=== PATIENT | male | born 1955 | race Caucasian/White ===

== ENCOUNTER 2017-04-17 20:41 | Emergency (ER) | payer OTHER, BC ==
[2017-04-17 20:52] VITALS: BP 154/93
--- NOTE | 2017-04-17 21:57 | EDM.PDOC ---
ED HPI GENERAL MEDICAL PROBLEM - General Chief Complaint: Lower Extremity Injury/Pain Stated Complaint: LEFT ANKLE INJURY Time Seen by Provider: 04/17/17 21:27 Source of Information: Reports: Patient History Limitations: Reports: No Limitations - History of Present Illness INITIAL COMMENTS - FREE TEXT/NARRATIVE: Patient is a 61-year-old male who presents to the ED complaining of posterior ankle discomfort. States he was running wearing full bunker gear and felt a pop to the posterior aspect of his lower leg. He is able to flex and extend his foot with increasing pain noted to the Achilles. He questions if he had torn his Achilles tendon. No numbness or tingling, or sensory deficits distally. He has no prior history of Achilles rupture. Denies any pain to the remainder of his lower leg and knee. Left Ankle Pain Score (Numeric/FACES): 2 - Related Data Allergies Allergy/AdvReac Type Severity Reaction Status Date / Time acetaminophen [From Vicodin] AdvReac Giddiness Verified 04/17/17 20:59 hydrocodone [From Vicodin] AdvReac Giddiness Verified 04/17/17 20:59 Home Meds: Home Meds Allopurinol [Zyloprim] 300 mg PO DAILY 08/19/16 [History] Lisinopril 20 mg PO DAILY 08/19/16 [History] atorvaSTATin [Lipitor] 20 mg PO BEDTIME 08/19/16 [History] Aspirin 1 tab PO DAILY 09/21/16 [History] Ca Carbonate/Vitamin D3/Vit K [Calcium + D Soft Chewable Tab] 1 tab PO DAILY 03/02 [History] Cinnamon Bark [Cinnamon] 1 cap PO DAILY 09/21/16 [History] Clobetasol Propionate [Temovate] 1 applic TOP ASDIRECTED PRN 09/21/16 [History] Fish Oil/Borage/Flax/Om3,6,9#1 [[place] 3-6-9 Complex Softgel] 1 cap PO DAILY 03/02 [History] Fluticasone Propionate [Flonase] 1 spray NASBOTH DAILY PRN 09/21/16 [History] Ibuprofen [Advil] 2 - 3 tab PO Q6HR PRN 09/21/16 [History] Triamcinolone Acetonide [Kenalog-40] 1 applic TOP ASDIRECTED PRN 09/21/16 [ History] Orphenadrine [Norflex] 100 mg PO BID PRN #16 tab.er 04/17/17 [Rx] traMADol [Ultram] 50 mg PO Q6H PRN #15 tablet 04/17/17 [Rx] traMADol [Ultram] 50 mg PO Q6H PRN #2 tablet 04/17/17 [Rx] Past Medical History HEENT History: Reports: None Cardiovascular History: Reports: CAD, High Cholesterol, Hypertension, [place] Respiratory History: Reports: Sleep Apnea Gastrointestinal History: Reports: GERD Other Gastrointestinal History: biliary dyskinesia, increased LFTs, diverticular disease Genitourinary History: Reports: None Musculoskeletal History: Reports: Back Pain, Chronic, Other (See Below) Other Musculoskeletal History: left arm pain, degenerative disk disease, L knee osteoarthritis Neurological History: Reports: None Psychiatric History: Reports: None Endocrine/Metabolic History: Reports: Diabetes, Type II - Past Surgical History GI Surgical History: Reports: Cholecystectomy, Colonoscopy Neurological Surgical History: Reports: Lumbar Spine Musculoskeletal Surgical History: Reports: Arthroscopic Procedure, Shoulder Surgery Social & Family History - Family History Family Medical History: Noncontributory - Tobacco Use Smoking Status *Q: Never Smoker Second Hand Smoke Exposure: No - Caffeine Use Caffeine Use: Reports: Coffee, Soda - Recreational Drug Use Recreational Drug Use: No Review of Systems - Review of Systems Review Of Systems: See Below Musculoskeletal: Reports: Leg Pain Neurological: Reports: Difficulty Walking. Denies: Numbness, Tingling ED EXAM, GENERAL - Physical Exam Exam: See Below Exam Limited By: No Limitations General Appearance: Alert, WD/WN, No Apparent Distress Ears: Hearing Grossly Normal Nose: Normal Inspection Throat/Mouth: Normal Voice, No Airway Compromise Neck: Normal Inspection Respiratory/Chest: No Respiratory Distress, No Accessory Muscle Use Cardiovascular: Normal Peripheral Pulses, Regular Rate, Rhythm Peripheral Pulses: 2+: Posterior Tibial (L), Dorsalis Pedis (L) Extremities: Normal Inspection, Normal Range of Motion, No Pedal Edema, Normal Capillary Refill, Other (Ramos test was positive. On palpation of the Achilles area soft with minimal pain on palpation. No swelling, ecchymosis, or bony abnormalities noted. Patient may have partially torn his Achilles.) Neurological: Alert, Oriented, Normal Cognition, No Motor/Sensory Deficits Psychiatric: Normal Affect, Normal Mood Skin Exam: Warm, Dry, Intact, Normal Color Course - Vital Signs Last Recorded V/S: Last Vital Signs Temp 97.8 F 04/17/17 20:49 Pulse 79 04/17/17 20:49 Resp 16 04/17/17 20:49 BP 154/93 H 04/17/17 20:49 Pulse Ox 96 04/17/17 20:49 - Orders/Labs/Meds Meds: Medications Discontinued Medications Generic Name Dose Route Start Last Admin Trade Name Jj PRN Reason Stop Dose Admin Ibuprofen 600 mg 04/17/17 21:58 04/17/17 22:05 Motrin PO 04/17/17 21:59 600 mg ONETIME ONE Administration Orphenadrine Citrate 100 mg 04/18/17 23:26 Norflex PO 04/18/17 23:27 BEDTIME ONE Orphenadrine Citrate 100 mg 04/17/17 23:26 04/17/17 23:38 Norflex PO 04/17/17 23:27 100 mg BEDTIME ONE Administration Tramadol HCl 50 mg 04/17/17 21:59 04/17/17 22:07 Ultram PO 04/17/17 22:00 50 mg ONETIME ONE Administration Tramadol HCl Confirm 04/17/17 23:44 Ultram Administered 04/17/17 23:45 Dose 100 mg .ROUTE .STK-MED ONE - Re-Assessments/Exams Free Text/Narrative Re-Assessment/Exam: Will obtain x-ray of the left ankle to evaluate for avulsion of the Achilles off the calcaneus. X-ray of the left ankle did not reveal any acute bony abnormalities or findings of complete avulsion of the Achilles tendon of the calcaneus. Walking boot and crutches ordered upon discharge. Discharge instructions as documented. Ordered 600 mg of ibuprofen and tramadol 50 mg by mouth for pain. [address] Lisa. Recommends posterior splint with foot plantar flexed as much as possible. He'll see the patient in the office on Saturday. Request ordering MRI of the lower leg. Short leg posterior splint applied with no complications. Foot plantar flexed as much as possible. Pain is under control. Will discharge patient home with instructions as documented. They already have crutches so none will be provided on discharge. Will send patient home on tramadol for pain. Prescription for tramadol and Norflex provided. In addition Norflex 100 mg by mouth ordered for the ED patient's had some muscle cramps to the affected leg. Departure - Departure Time of Disposition: 23:23 Disposition: Home, Self-Care 01 Condition: Good Clinical Impression: Partial tear of Achilles tendon Qualifiers: Encounter type: initial encounter Laterality: left Qualified Code(s): S86.012A - Strain of left Achilles tendon, initial encounter - Discharge Information Prescriptions: Orphenadrine [Norflex] 100 mg PO BID PRN #16 tab.er PRN Reason: Muscle Spasm traMADol [Ultram] 50 mg PO Q6H PRN #2 tablet PRN Reason: Pain (Severe 7-10) traMADol [Ultram] 50 mg PO Q6H PRN #15 tablet PRN Reason: Pain (Severe 7-10) Instructions: Pain Medicine Instructions, [id number], Cast or Splint Care, [id number], Crutch Use, [id number] Referrals: Imtiaz Bowden MD [Primary Care Provider] - Akin Lisa MD [Physician] - Maximino Frias MD [Physician] - Forms: ED Department Discharge Additional Instructions: You are to be nonweightbearing utilizing crutches only to ambulate. Elevate when able to reduce swelling and pain. Apply ice to the affected area times daily, 30 minutes in duration. Take ibuprofen 600 mg every 6 hours with food and plenty of water For pain. For muscle cramps taking Norflex 100 mg twice a day. For moderate to severe pain take the tramadol 1 tab every 4-6 hours. No [address] while taking the tramadol and Norflex due to increase sedative side effects. No driving this evening. Follow-up with Dr. Graham this coming Saturday for reevaluation or contact Dr. Frias for an appointment. MRI of the lower leg will be obtained to further delineate extent of injury. Return to the ED as needed for any new or worsening symptoms.
[2017-04-17] MEDS ORDERED: Ibuprofen 600 MG Tab PO ONE (21:58)
[2017-04-17] MEDS ORDERED: traMADol 50 MG Tab PO ONE (21:59)
[2017-04-17] MEDS ORDERED: Orphenadrine 100 MG Tab.ER PO ONE (23:26)
[2017-04-17] MEDS ORDERED: traMADol 50 MG Tab ONE (23:44)
--- NOTE | 2017-04-18 06:59 | CR ---
Left ankle: Two views of the left ankle were obtained. Comparison: No prior ankle study. Plantar spur is seen. Bony densities are noted off the medial and lateral malleolus which appear old. No acute fracture or other bony abnormality is seen. Impression: 1. Old bony trauma as described above. 2. Plantar spur. 3. No additional abnormality is identified on two-view left ankle study. Diagnostic code #2
[2017-04-18] MEDS ORDERED: Orphenadrine 100 MG Tab.ER PO ONE (23:26)
== END 2017-04-17 23:58 | disposition home or self-care (01) ==
LOC: JD.ED 20:41
DX: S86.012A Strain of left Achilles tendon, initial encounter (principal); I10 Essential (primary) hypertension; I25.2 Old myocardial infarction; I25.10 Atherosclerotic heart disease of native coronary artery without angina pectoris; E78.00 Pure hypercholesterolemia, unspecified; G47.30 Sleep apnea, unspecified; K21.9 Gastro-esophageal reflux disease without esophagitis; E11.9 Type 2 diabetes mellitus without complications; Z90.49 Acquired absence of other specified parts of digestive tract; Z98.890 Other specified postprocedural states; Z79.82 Long term (current) use of aspirin; Z79.899 Other long term (current) drug therapy; Z88.6 Allergy status to analgesic agent; X58.XXXA Exposure to other specified factors, initial encounter
CPT/HCPCS: 29515; 73600; 99283; A9270

== ENCOUNTER 2017-10-16 07:02 | Day surgery (SDC) | payer BC, OTHER ==
[~2017-10-16 07:02] MED LIST: Bisacodyl 5 MG Tab PO PRN; Bupivacaine 0.25% 30 ML SDV ONE; Iodine/Sodium Iodide 2% Tincture 30 ML Bottle ONE; Lactated Ringers 1,000 ML IV SCH; Lidocaine 1%/Sod Bicarbonate in NS 8.4% 1 ML Syringe IDERM PRN; Lidocaine 1%/Sod Bicarbonate in NS 8.4% 1 ML Syringe IV PRN; Magnesium Hydroxide 400 MG/5 ML Susp 30 ML Cup PO PRN; Morphine 2 MG/ML Syringe IVPUSH PRN; Morphine 8 MG, EPINEPHrine 0.3 MG, Cefuroxime 750 MG, Ketorolac 30 MG, Sodium Chloride ... ONE; Naloxone 0.4 MG/ML SDV IVPUSH PRN; Ondansetron 4 MG/2 ML SDV IVPUSH PRN; Sennosides 8.6 MG Tab PO PRN; Sodium Chloride 0.9% 10 ML Syringe FLUSH PRN; Vancomycin 1 GM SDV ONE; ceFAZolin 1 GM Vial ONE; diphenhydrAMINE 50 MG/ML SDV IVPUSH PRN
[2017-10-16] MEDS ORDERED: Morphine PF 1 MG/ML Amp ONE (07:36)
[2017-10-16] MEDS ORDERED: Propofol 200 MG/20 ML SDV ONE ×4 (07:41→10:12)
[2017-10-16] MEDS ORDERED: fentaNYL 100 MCG/2 ML SDV ONE (07:41)
[2017-10-16] MEDS ORDERED: Ondansetron 4 MG/2 ML SDV ONE (07:42)
[2017-10-16] MEDS ORDERED: ceFAZolin 1 GM Vial ONE (07:42)
[2017-10-16] MEDS ORDERED: Lidocaine 1% 4 ML ONE (07:42)
[2017-10-16] MEDS ORDERED: Midazolam 1 MG/ML 2 ML SDV ONE (07:42)
[2017-10-16] MEDS ORDERED: Scopolamine 1 MG Transdermal Patch TOP ONE (07:56)
--- NOTE | 2017-10-16 07:58 | PCM.PREANE ---
Preanesthetic Assessment - Anesthesia/Transfusion/Family Hx Anesthesia History: Prior Anesthesia Without Reaction Family History of Anesthesia Reaction: No Transfusion History: No Prior Transfusion(s) - Review of Systems General: No Symptoms Pulmonary: No Symptoms Cardiovascular: No Symptoms Gastrointestinal: No Symptoms Neurological: No Symptoms Other: Reports: Easy Bleeding (nose bleeds), Diabetes (BS [id number]), Liver Problems (fatty liver) - Physical Assessment NPO Status Date: 10/16/17 NPO Status Time: 00:00 Pulse: 62 O2 Sat by Pulse Oximetry: 94 Respiratory Rate: 16 Blood Pressure: 152/89 Temperature: 36.7 C Vital Signs: Last Vital Signs Temp 36.7 C 10/16/17 07:20 Pulse 62 10/16/17 07:20 Resp 16 10/16/17 07:20 BP 152/89 H 10/16/17 07:20 Pulse Ox 94 L 10/16/17 07:20 Height: 1.83 m Weight: 94.801 kg ASA Class: 2 Mental Status: Alert & Oriented x3 Airway Class: Mallampati = 1 Dentition: Reports: Normal Dentition, Point Blank(s) Thyro-Mental Finger Breadths: 3 Mouth Opening Finger Breadths: 3 ROM/Head Extension: Full Lungs: Clear to Auscultation, Normal Respiratory Effort Cardiovascular: Regular Rate, Regular Rhythm, No Murmurs - Lab Values: Laboratory Last Values POC Glucose 143 mg/dL (80-115) H 10/16/17 07:41 MRSA (PCR) Negative 09/24/17 15:14 - Imaging/EKG Impressions: on chart SB - Allergies Allergies/Adverse Reactions: Allergies Allergy/AdvReac Type Severity Reaction Status Date / Time acetaminophen [From Vicodin] AdvReac Confusion Verified 10/16/17 07:56 hydrocodone [From Vicodin] AdvReac Confusion Verified 10/16/17 07:56 - Anesthesia Plan Pre-Op Medication Ordered: None - Acknowledgements Anesthesia Type Planned: Spinal Pt an Appropriate Candidate for the Planned Anesthesia: Yes Alternatives and Risks of Anesthesia Discussed w Pt/Guardian: Yes Pt/Guardian Understands and Agrees with Anesthesia Plan: Yes PreAnesthesia Questionnaire HEENT History: Reports: Impaired Vision, Other (See Below) Other HEENT History: wears glasses Cardiovascular History: Reports: CAD, High Cholesterol, Hypertension, [place] Respiratory History: Reports: Sleep Apnea Gastrointestinal History: Reports: GERD Other Gastrointestinal History: biliary dyskinesia, increased LFTs, diverticular disease Genitourinary History: Reports: None [employer] History: Reports: None Musculoskeletal History: Reports: Back Pain, Chronic, Gout, Other (See Below) Other Musculoskeletal History: left arm pain, degenerative disk disease, L knee osteoarthritis Neurological History: Reports: None Psychiatric History: Reports: None Endocrine/Metabolic History: Reports: Diabetes, Type II Hematologic History: Reports: None Immunologic History: Reports: None Oncologic (Cancer) History: Reports: None Dermatologic History: Reports: Psoriasis - Past Surgical History Head Surgeries/Procedures: Reports: None Cardiovascular Surgical History: Reports: None Respiratory Surgical History: Reports: None GI Surgical History: Reports: Cholecystectomy, Colonoscopy Female Surgical History: Reports: None Male Surgical History: Reports: None Endocrine Surgical History: Reports: None Neurological Surgical History: Reports: Laminectomy, Lumbar Spine Musculoskeletal Surgical History: Reports: Arthroscopic Procedure, Shoulder Surgery Other Musculoskeletal Surgeries/Procedures:: R rotator cuff repair, L knee arthroscopy Oncologic Surgical History: Reports: None Dermatological Surgical History: Reports: None - SUBSTANCE USE Smoking Status *Q: Never Smoker Tobacco Use Within Last Twelve Months: No Second Hand Smoke Exposure: No Recreational Drug Use History: No - HOME MEDS Home Medications: Home Meds Allopurinol [Zyloprim] 300 mg PO DAILY 08/19/16 [History] Lisinopril 20 mg PO DAILY 08/19/16 [History] atorvaSTATin [Lipitor] 20 mg PO BEDTIME 08/19/16 [History] Ca Carbonate/Vitamin D3/Vit K [Calcium + D Soft Chewable Tab] 1 tab PO DAILY 03/02 [History] Fish Oil/Borage/Flax/Om3,6,9#1 [[place] 3-6-9 Complex Softgel] 1 cap PO DAILY 03/02 [History] Fluticasone Propionate [Flonase] 1 spray NASBOTH DAILY PRN 09/21/16 [History] Ibuprofen [Advil] 2 - 3 tab PO Q6HR PRN 09/21/16 [History] Cholecalciferol (Vitamin D3) [Vitamin D3] 5,000 unit PO DAILY 10/09/17 [History] Triamcinolone Acetonide [Triamcinolone Acetonide 0.1% Crm] 1 applic TOP DAILY [History] - CURRENT (IN HOUSE) MEDS Current Meds: Current Medications Aspirin (Ecotrin) 325 mg PO BID JOSE Bisacodyl (Dulcolax) 5 mg PO DAILY PRN PRN Reason: Constipation Cyclobenzaprine HCl (Flexeril) 10 mg PO TID PRN PRN Reason: Spasms Diphenhydramine HCl (Benadryl) 25 mg IVPUSH Q4H PRN PRN Reason: Nausea Docusate Sodium (Colace) 100 mg PO BID JOSE Famotidine (Pepcid) 20 mg PO Q12H [facility] Lactated Ringer's (Ringers, Lactated) 1,000 mls @ 125 mls/hr IV ASDIRECTED [facility] Stop: 10/16/17 23:00 Cefazolin Sodium/Dextrose 2 gm (/ Premix) 50 mls @ 100 mls/hr IV Q8H [facility] Stop: 10/17/17 08:29 Ketorolac Tromethamine (Toradol) 15 mg IVPUSH Q6H PRN PRN Reason: Pain Lidocaine/Sodium Bicarbonate (Buffered Lidocaine 1% In Ns 8.4%) 0.25 ml IDERM ONETIME PRN PRN Reason: Prior to IV Start Stop: 10/16/17 18:00 Magnesium Hydroxide (Milk Of Magnesia) 30 ml PO BID PRN PRN Reason: Constipation Morphine Sulfate (Morphine) 2 mg IVPUSH Q2H PRN PRN Reason: Breakthrough Pain Naloxone HCl (Narcan) 0.1 mg IVPUSH Q5M PRN PRN Reason: Oversedation Ondansetron HCl (Zofran) 4 mg IVPUSH Q6H PRN PRN Reason: Nausea/Vomiting Oxycodone/Acetaminophen (Percocet 325-5 Mg) 1 - 2 tab PO Q4H PRN PRN Reason: Pain Senna (Senna) 8.6 mg PO BID PRN PRN Reason: Constipation Sodium Chloride (Saline Flush) 10 ml FLUSH ASDIRECTED PRN PRN Reason: Keep Vein Open Stop: 10/16/17 18:00 Discontinued Medications Bupivacaine HCl (Marcaine 0.25%) Confirm Administered Dose 30 ml .ROUTE .STK- MED ONE Stop: 10/16/17 06:59 Cefazolin Sodium (Ancef) Confirm Administered Dose 2 gm .ROUTE .STK-MED ONE Stop: 10/16/17 06:59 Cefazolin Sodium (Ancef) Confirm Administered Dose 2 gm .ROUTE .STK-MED ONE Stop: 10/16/17 07:43 Morphine Sulfate 8 mg/Epinephrine HCl 0.3 mg/Cefuroxime Sodium 750 mg/Ketorolac Tromethamine 30 mg/Sodium Chloride 27.9 ml 0 mg .XX ONETIME ONE Stop: 10/16/17 06:38 Fentanyl (Sublimaze) Confirm Administered Dose 100 mcg .ROUTE .STK-MED ONE Stop: 10/16/17 07:42 Lactated Ringer's (Ringers, Lactated) 1,000 mls @ 125 mls/hr IV ASDIRECTED JOSE Stop: 10/10/17 23:00 Lidocaine HCl (Xylocaine-Mpf 1%) Confirm Administered Dose 4 mls @ as directed .ROUTE .STK-MED ONE Stop: 10/16/17 07:43 Iodine (Iodine 2% Mild Tincture) Confirm Administered Dose 30 ml .ROUTE .STK- MED ONE Stop: 10/16/17 06:59 Lidocaine/Sodium Bicarbonate (Buffered Lidocaine 1% In Ns 8.4%) 0.25 ml IV ONETIME PRN PRN Reason: Prior to IV Start Stop: 10/10/17 18:00 Midazolam HCl (Versed 1 Mg/Ml) Confirm Administered Dose 2 mg .ROUTE .STK-MED ONE Stop: 10/16/17 07:43 Morphine Sulfate (Duramorph Pf) Confirm Administered Dose 1 mg .ROUTE .STK-MED ONE Stop: 10/16/17 07:37 Ondansetron HCl (Zofran) Confirm Administered Dose 4 mg .ROUTE .STK-MED ONE Stop: 10/16/17 07:43 Propofol (Diprivan 20 Ml) Confirm Administered Dose 200 mg .ROUTE .STK-MED ONE Stop: 10/16/17 07:42 Sodium Chloride (Saline Flush) 10 ml FLUSH ASDIRECTED PRN PRN Reason: Keep Vein Open Stop: 10/10/17 18:00 Tranexamic Acid (Cyklokapron) Confirm Administered Dose 1,000 mg .ROUTE .STK- MED ONE Stop: 10/16/17 06:59 Vancomycin HCl (Vancomycin) Confirm Administered Dose 1 gm .ROUTE .STK-MED ONE Stop: 10/16/17 06:59
[2017-10-16] MEDS ORDERED: Lactated Ringers 1,000 ML ONE ×2 (09:03→10:21)
[2017-10-16] MEDS ORDERED: Ketorolac 30 MG/ML SDV ONE (10:27)
[2017-10-16] MEDS ORDERED: fentaNYL 100 MCG/2 ML SDV IVPUSH PRN (10:50)
--- NOTE | 2017-10-16 10:51 | PCM.POSTAN ---
POST ANESTHESIA ASSESSMENT - MENTAL STATUS Mental Status: Alert, Oriented - VITAL SIGNS Pulse Rate: 64 SaO2: 94 Resp Rate: 9 Blood Pressure: 103/63 Temperature: 36.1 C - RESPIRATORY Respiratory Status: Respiratory Rate WNL, Airway Patent, O2 Saturation Stable, Supplemental Oxygen - CARDIOVASCULAR CV Status: Pulse Rate WNL, Blood Pressure Stable - GASTROINTESTINAL GI Status: No Symptoms - PAIN Pain Score: 0 - POST OP HYDRATION Hydration Status: Adequate & Stable - OBSERVATIONS Free Text/Narrative:: no anesthesia complications noted
[2017-10-16] MEDS ORDERED: EPINEPHrine 1 MG/ML SDV ONE (11:08)
[2017-10-16] MEDS ORDERED: Ropivacaine 0.5% 5 MG/ML 30 ML SDV ONE (11:08)
--- NOTE | 2017-10-16 11:49 | CR ---
Left knee: AP and lateral views of the left knee were obtained. Comparison: No previous study. Knee prosthesis is seen. Components are aligned. Soft tissue air is noted from the surgical procedure. Underlying bony structures are intact. Impression: 1. Satisfactory radiographic appearance of recently placed left knee prosthesis. Diagnostic code #2
--- NOTE | 2017-10-16 12:19 | PCM.SN ---
- Free Text/Narrative Note: Left selective femoral nerve block at the adductor canal for post-procedure pain control under US guidance requested by Dr. Frias. Time Out: 1124 Start: 1127 End: 1137 Chart reviewed. Consent signed. Questions answered. Appropriate monitors applied. Time out performed. Left mid-shaft femur identified with ultrasound, scanning medially of femur, the femoral artery in the adductor canal visualized , and the femoral nerve located laterally to the artery. The skin was prepped lateral to the ultrasound probe with chlorahexadine. The 21ga 4 insulated block needle was inserted under direct ultrasound guidance into the adductor canal. 25mL of 0.5% ropivacaine with 1:200,000 epinephrine was injected cirmcumferentially around the nerve with intermittent negative aspiration noted. Patient tolerated the procedure well. See pictures on progress note and vital signs on nurses notes. Block completed in PACU. Melvi Cabral CRNA
--- NOTE | 2017-10-16 15:02 | PCM.CONS ---
H&P History of Present Illness - General Date of Service: 10/16/17 Admit Problem/Dx: Admission Diagnosis/Problem Admission Diagnosis/Problem Osteoarthritis of knee Source of Information: Patient, Old Records, Police, Provider, RN, RN Notes Reviewed, Other (surgical notes ) History Limitations: Reports: No Limitations - History of Present Illness Initial Comments - Free Text/Narative: Raf North is a 61 yo male patient of Dr. Frias who is post-operative day 0 of left TKA. Hospital medicine was consulted for post-operative medical care. At this time he is resting comfortably in bed. Pain is controlled. He denies any chest pain, shortness of breath, palpitations, nausea, or vomiting. He carries a history of: impaired vision, CAD, HLC, HTN, prior ME, PERRY, GERD, biliary dyskinesia, increased LFTs, diverticular disease, chronic back pain, gout, degenerative disk disease, OA, Type II DM although he is not on any medications , psoriasis. He was never a smoker. He is a full code. His primary care provider is Dr. Bowden at [facility] here in [place]. Left Knee Pain Score (Numeric/FACES): 1 - Related Data Allergies/Adverse Reactions: Allergies Allergy/AdvReac Type Severity Reaction Status Date / Time acetaminophen [From Vicodin] AdvReac Confusion Verified 10/16/17 07:56 hydrocodone [From Vicodin] AdvReac Confusion Verified 10/16/17 07:56 Home Medications: Home Meds Allopurinol [Zyloprim] 300 mg PO DAILY 08/19/16 [History] Lisinopril 20 mg PO DAILY 08/19/16 [History] atorvaSTATin [Lipitor] 20 mg PO BEDTIME 08/19/16 [History] Ca Carbonate/Vitamin D3/Vit K [Calcium + D Soft Chewable Tab] 1 tab PO DAILY 03/02 [History] Fish Oil/Borage/Flax/Om3,6,9#1 [[place] 3-6-9 Complex Softgel] 1 cap PO DAILY 03/02 [History] Fluticasone Propionate [Flonase] 1 spray NASBOTH DAILY PRN 09/21/16 [History] Ibuprofen [Advil] 2 - 3 tab PO Q6HR PRN 09/21/16 [History] Cholecalciferol (Vitamin D3) [Vitamin D3] 5,000 unit PO DAILY 10/09/17 [History] Triamcinolone Acetonide [Triamcinolone Acetonide 0.1% Crm] 1 applic TOP DAILY [History] Past Medical History HEENT History: Reports: Impaired Vision, Other (See Below) Other HEENT History: wears glasses Cardiovascular History: Reports: CAD, High Cholesterol, Hypertension, ME Respiratory History: Reports: Sleep Apnea Gastrointestinal History: Reports: GERD Other Gastrointestinal History: biliary dyskinesia, increased LFTs, diverticular disease Genitourinary History: Reports: None 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 VICE 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 History: Reports: None Musculoskeletal History: Reports: Back Pain, Chronic, Gout, Other (See Below) Other Musculoskeletal History: left arm pain, degenerative disk disease, L knee osteoarthritis Neurological History: Reports: None Psychiatric History: Reports: None Endocrine/Metabolic History: Reports: Diabetes, Type II Hematologic History: Reports: None Immunologic History: Reports: None Oncologic (Cancer) History: Reports: None Dermatologic History: Reports: Psoriasis - Past Surgical History Head Surgeries/Procedures: Reports: None Cardiovascular Surgical History: Reports: None Respiratory Surgical History: Reports: None GI Surgical History: Reports: Cholecystectomy, Colonoscopy Female Surgical History: Reports: None Male Surgical History: Reports: None Endocrine Surgical History: Reports: None Neurological Surgical History: Reports: Laminectomy, Lumbar Spine Musculoskeletal Surgical History: Reports: Arthroscopic Procedure, Shoulder Surgery Other Musculoskeletal Surgeries/Procedures:: R rotator cuff repair, L knee arthroscopy Oncologic Surgical History: Reports: None Dermatological Surgical History: Reports: None Social & Family History - Family History Family Medical History: Noncontributory - Tobacco Use Smoking Status *Q: Never Smoker Second Hand Smoke Exposure: No - Caffeine Use Caffeine Use: Reports: Coffee, Soda - Recreational Drug Use Recreational Drug Use: No H&P Review of Systems - Review of Systems: Review Of Systems: See Below General: Reports: No Symptoms HEENT: Reports: No Symptoms Pulmonary: Reports: No Symptoms Cardiovascular: Reports: No Symptoms Gastrointestinal: Reports: No Symptoms Genitourinary: Reports: No Symptoms Musculoskeletal: Reports: Joint Pain (left knee ) Skin: Reports: No Symptoms Psychiatric: Reports: No Symptoms Neurological: Reports: No Symptoms Hematologic/Lymphatic: Reports: No Symptoms Immunologic: Reports: No Symptoms Exam - Exam Exam: See Below - Vital Signs Vital Signs: Last Vital Signs Temp 97.3 F 10/16/17 13:30 Pulse 50 L 10/16/17 13:40 Resp 13 10/16/17 11:45 BP 115/72 10/16/17 13:30 Pulse Ox 95 10/16/17 14:00 Weight: 209 lb - Exam Quality Assessment: Urinary Catheter, DVT Prophylaxis General: Alert, Oriented, Cooperative. No: Mild Distress HEENT: PERRLA, Hearing Intact, Mucosa Moist & [place], Nares Patent, Normal Nasal Septum, Posterior Pharynx Clear, Conjunctiva Clear, EOMI, EACs Clear, TMs Clear Neck: Supple, Trachea Midline Lungs: Clear to Auscultation, Normal Respiratory Effort Cardiovascular: Regular Rate, Regular Rhythm GI/Abdominal Exam: Normal Bowel Sounds, Soft, Non-Tender, No Organomegaly, No Distention, No Abnormal Bruit, No Mass, Pelvis Stable (Male) Exam: Deferred Rectal (Males) Exam: Deferred Back Exam: Normal Inspection, Full Range of Motion Extremities: No Pedal Edema, Normal Capillary Refill, Leg Pain (left knee ), Other (ABELINO bandage in place on left leg. Bandage is dry and intact. Cooling pack in place. ) Peripheral Pulses: 2+: Radial (L), Radial (R), Posterior Tibial (L), Posterior Tibial (R), Dorsalis Pedis (L), Dorsalis Pedis (R) Skin: Warm, Dry, Intact Neurological: Cranial Nerves Intact (grossly) Neuro Extensive - Mental Status: Alert, Oriented x3, Normal Mood/Affect, Normal Cognition, Memory Intact Psychiatric: Alert, Normal Affect, Normal Mood - Patient Data Lab Results Last 24 hrs: Laboratory Results - last 24 hr 10/16/17 Range/Units 07:41 POC Glucose 143 H (80-115) mg/dL Consult PN Assessment/Plan POD#: 0 Procedures: Procedures APPLICATION LOWER LEG SPLINT (04/17/17) ASSAY OF LIPASE (08/19/16) ASSAY OF TROPONIN QUANT (08/19/16) COMPLETE CBC W/AUTO DIFF WBC (08/19/16) COMPREHEN METABOLIC PANEL (08/19/16) DXA BONE DENSITY AXIAL (10/04/17) ECHO EXAM OF ABDOMEN (08/19/16) ELECTROCARDIOGRAM TRACING (08/19/16) EMERGENCY DEPT VISIT (04/17/17) EMERGENCY DEPT VISIT (08/19/16) GLUCOSE BLOOD TEST (09/24/16) HEPATOBIL SYST IMAGE W/DRUG (08/22/16) HYDRATE IV INFUSION ADD-ON (08/19/16) [place] CHOLECYSTECTOMY/GRAPH (09/24/16) ROUTINE VENIPUNCTURE (08/19/16) RPR UMBIL JANELL REDUC > 5 YR (09/24/16) THER/PROPH/DIAG INJ IV PUSH (08/19/16) TISSUE EXAM BY PATHOLOGIST (09/24/16) TX/PRO/DX INJ NEW DRUG ADDON (08/19/16) TX/PRO/DX INJ SAME DRUG HIGH TENSION TESTER (08/19/16) X-RAY BILE DUCTS/PANCREAS (09/24/16) X-RAY EXAM OF ANKLE (04/17/17) (1) S/P total knee arthroplasty SNOMED Code(s): 3211126468919, 2200387886860 Code(s): Z96.659 - PRESENCE OF UNSPECIFIED ARTIFICIAL KNEE JOINT Priority: High Current Visit: Yes Qualifiers: Laterality: left Qualified Code(s): Z96.652 - Presence of left artificial knee joint (2) Osteoarthritis SNOMED Code(s): 316316858 Code(s): M19.90 - UNSPECIFIED OSTEOARTHRITIS, UNSPECIFIED SITE Priority: High Current Visit: Yes Qualifiers: Osteoarthritis location: knee Osteoarthritis type: primary Laterality: left Qualified Code(s): M17.12 - Unilateral primary osteoarthritis, left knee (3) CAD (coronary artery disease) SNOMED Code(s): 67301474 Code(s): I25.10 - ATHSCL HEART DISEASE OF [place] CORONARY ARTERY W/O ANG PCTRS Priority: Low Current Visit: No Qualifiers: Coronary Disease-Associated Artery/Lesion type: unspecified vessel or lesion type [place] vs. transplanted heart: [place] heart Associated angina: angina presence unspecified Qualified Code(s): I25.10 - Atherosclerotic heart disease of [place] coronary artery without angina pectoris (4) HLD (hyperlipidemia) SNOMED Code(s): 19781863 Code(s): E78.5 - HYPERLIPIDEMIA, UNSPECIFIED Priority: Low Current Visit : No Qualifiers: Hyperlipidemia type: unspecified Qualified Code(s): E78.5 - Hyperlipidemia , unspecified (5) HTN (hypertension) SNOMED Code(s): 71856059 Code(s): I10 - ESSENTIAL (PRIMARY) HYPERTENSION Priority: Low Current Visit: No Qualifiers: Hypertension type: unspecified Qualified Code(s): I10 - Essential (primary ) hypertension (6) History of myocardial infarction SNOMED Code(s): 031917718 Code(s): I25.2 - OLD MYOCARDIAL INFARCTION Priority: Low Current Visit: No (7) Sleep apnea SNOMED Code(s): 28962118 Code(s): G47.30 - SLEEP APNEA, UNSPECIFIED Priority: Low Current Visit: No Qualifiers: Sleep apnea type: unspecified type Qualified Code(s): G47.30 - Sleep apnea , unspecified (8) GERD (gastroesophageal reflux disease) SNOMED Code(s): 635522525 Code(s): K21.9 - GASTRO-ESOPHAGEAL REFLUX DISEASE WITHOUT ESOPHAGITIS Priority: Low Current Visit: No Qualifiers: Esophagitis presence: esophagitis presence not specified Qualified Code(s) : K21.9 - Gastro-esophageal reflux disease without esophagitis (9) Elevated LFTs SNOMED Code(s): 129450816 Code(s): R79.89 - OTHER SPECIFIED ABNORMAL FINDINGS OF BLOOD CHEMISTRY Priority: Low Current Visit: No (10) Diverticular disease SNOMED Code(s): 59269456 Code(s): K57.90 - DVRTCLOS OF INTEST, PART UNSP, W/O PERF OR ABSCESS W/O BLEED Priority: Low Current Visit: No (11) Chronic back pain SNOMED Code(s): 979462876 Code(s): M54.9 - DORSALGIA, UNSPECIFIED; G89.29 - OTHER CHRONIC PAIN Priority: Low Current Visit: No Qualifiers: Back pain location: back pain in unspecified location Back pain laterality : unspecified Qualified Code(s): M54.9 - Dorsalgia, unspecified; G89.29 - Other chronic pain; G89.29 - Other chronic pain (12) Gout SNOMED Code(s): 89926923 Code(s): M10.9 - GOUT, UNSPECIFIED Priority: Low Current Visit: No Qualifiers: Gout site: unspecified site Gout etiology: unspecified cause Chronicity: unspecified Qualified Code(s): M10.9 - Gout, unspecified (13) Degenerative disk disease SNOMED Code(s): 50338609 Code(s): JOK2849 - Priority: Low Current Visit: No Qualifiers: Mid-cervical spinal level: unspecified (14) Type II diabetes mellitus SNOMED Code(s): 38939442 Code(s): E11.9 - TYPE 2 DIABETES MELLITUS WITHOUT COMPLICATIONS Priority: Low Current Visit: No Qualifiers: Diabetes mellitus complication status: without complication Diabetes mellitus priming mixture carrier insulin use: without priming mixture carrier use Qualified Code(s): E11.9 - Type 2 diabetes mellitus without complications (15) Biliary dyskinesia SNOMED Code(s): 904614803 Code(s): K82.8 - OTHER SPECIFIED DISEASES OF [place] Priority: Low Current Visit: No (16) Psoriasis SNOMED Code(s): 9362797 Code(s): L40.9 - PSORIASIS, UNSPECIFIED Priority: Low Current Visit: No Problem List Initiated/Reviewed/Updated: Yes My Orders Last 24 Hours: My Active Orders 10/16/17 14:57 Patient Status [ADT] Routine Cardiac Monitoring [RC] . DIRECTED Plan: I/P: Acute: S/P left total knee arthroplasty - post-operative day 0 -DVT prophylaxis and pain management per primary care team -PT/OT -IS/RT -Monitor oxygen saturation -Titrate oxygen as needed -Vital signs stable -Monitor labs -Pre-operative Hgb was 15.7 -Pre-operative A1C 6.1 -Negative stress test on 08/01/17 -Telemetry Osteoarthritis of left knee -Pain management per primary care team Chronic: impaired vision CAD - home meds HLD - home meds HTN - home meds Hx/o ME PERRY - home CPAP GERD - GI prophylaxis Biliary dyskinesia Increased LFTs Diverticular disease Chronic back pain - meds as needed Gout - home meds Degenerative Disk Disease Type II DM - although he reports he lost weight and now is not taking any meds. Psoriasis Plan: CM for discharge planning GI prophylaxis Home medications as indicated Other orders as listed above Routine AM labs He is a full code. His PCP is Dr. Bowden at [facility] in [place]. Thank you for allowing us to participate in the care of this patient!! Total time spent with patient 40 minutes Requesting Provider: Dr. Frias Date Consult Requested: 10/16/17 Reason for Consult: Post-operative medical managment Patient History Reviewed: Yes Admission H&P Reviewed: Yes Time Spent (in minutes): 40
[2017-10-16] MEDS: ceFAZolin 2 GM in Premix Bag 1 BAG IV SCH (16:01)
[2017-10-16] MEDS: Docusate Sodium 100 MG Cap PO SCH ×2 (19:33→21:20)
[2017-10-16] MEDS: Famotidine 20 MG Tab PO SCH ×2 (19:33→21:21)
[2017-10-16] MEDS: Simvastatin 20 MG Tab PO SCH ×2 (19:33→21:21)
[2017-10-16] MEDS: Cyclobenzaprine 10 MG Tab PO PRN (19:34)
[2017-10-16] MEDS: Ketorolac 15 MG/ML SDV IVPUSH PRN (20:53)
[2017-10-17] MEDS: Acetaminophen/oxyCODONE 325-5 MG Tab PO PRN ×3 (00:29→09:35)
[2017-10-17] MEDS: ceFAZolin 2 GM in Premix Bag 1 BAG IV SCH ×2 (00:30→09:36)
[2017-10-17] MEDS: Ketorolac 15 MG/ML SDV IVPUSH PRN (05:48)
--- NOTE | 2017-10-17 07:49 | PCM.CONSN ---
- General Info Date of Service: 10/17/17 Admission Dx/Problem (Free Text): Admission Diagnosis/Problem Admission Diagnosis/Problem Osteoarthritis of knee POD #[address] Frias Doing well, pain controlled, no n/v VSS on RA Ambulating, plans dc home today Functional Status: Reports: Pain Controlled, Tolerating Diet, Ambulating, Urinating, Incentive Spirometry - Review of Systems General: Reports: No Symptoms HEENT: Reports: No Symptoms Pulmonary: Reports: No Symptoms Cardiovascular: Reports: No Symptoms Gastrointestinal: Reports: No Symptoms Genitourinary: Reports: No Symptoms Musculoskeletal: Reports: Leg Pain Skin: Reports: No Symptoms Neurological: Reports: No Symptoms Psychiatric: Reports: No Symptoms - Patient Data Vitals - Most Recent: Last Vital Signs Temp 99.9 F 10/17/17 05:53 Pulse 69 10/17/17 05:24 Resp 20 10/17/17 05:24 BP 125/51 L 10/17/17 05:24 Pulse Ox 93 L 10/17/17 05:24 Weight - Most Recent: 218 lb 14.4 oz I&O - Last 24 Hours: Intake & Output 10/16/17 10/17/17 10/17/17 22:59 06:59 14:59 Intake Total 750 1900 Output Total 400 Balance 350 1900 Lab Results Last 24 Hours: Laboratory Results - last 24 hr 10/17/17 10/17/17 Range/Units 06:15 06:15 WBC 9.29 H (4.23-9.07) K/mm3 RBC 4.00 L (4.63-6.08) M/mm3 Hgb 13.0 L (13.7-17.5) gm/L Hct 37.3 L (40.1-51.0) % MCV 93.3 H (79.0-92.2) fl MCH 32.5 H (25.7-32.2) pg MCHC 34.9 (32.2-35.5) g/dl RDW Std Deviation 43.3 (35.1-43.9) fL Plt Count 134 L (163-337) K/mm3 MPV 11.2 (9.4-12.3) fl Sodium 136 (136-145) mEq/L Potassium 4.0 (3.5-5.1) mEq/L Chloride 102 (98-107) mEq/L Carbon Dioxide 26 (21-32) mEq/L Anion Gap 12.0 (5-15) BUN 15 (7-18) mg/dL Creatinine 1.0 (0.7-1.3) mg/dL Est Cr Clr Drug Dosing 84.07 mL/min Estimated GFR (MDRD) > 60 (>60) mL/min BUN/Creatinine Ratio 15.0 (14-18) Glucose 128 H (80-115) mg/dL Calcium 8.2 L (8.5-10.1) mg/dL Total Bilirubin 1.6 H (0.2-1.0) mg/dL AST 32 (15-37) U/L ALT 55 (16-63) U/L Alkaline Phosphatase 56 (46-116) U/L Total Protein 6.1 L (6.4-8.2) g/dl Albumin 3.3 L (3.4-5.0) g/dl Globulin 2.8 gm/dL Albumin/Globulin Ratio 1.2 (1-2) Med Orders - Current: Current Medications Allopurinol (Zyloprim) 300 mg PO DAILY [facility] Aspirin (Ecotrin) 325 mg PO BID [facility] Bisacodyl (Dulcolax) 5 mg PO DAILY PRN PRN Reason: Constipation Cholecalciferol (Vitamin D3) 5,000 units PO DAILY [facility] Cyclobenzaprine HCl (Flexeril) 10 mg PO TID PRN PRN Reason: Spasms Last Admin: 10/16/17 19:34 Dose: 10 mg Diphenhydramine HCl (Benadryl) 25 mg IVPUSH Q4H PRN PRN Reason: Nausea Docusate Sodium (Colace) 100 mg PO BID [facility] Last Admin: 10/16/17 21:20 Dose: Not Given Famotidine (Pepcid) 20 mg PO Q12H [facility] Last Admin: 10/16/17 21:21 Dose: Not Given Flunisolide (Nasalide Nasal [place]) 0 ml NASBOTH DAILY PRN PRN Reason: allergy symptoms Cefazolin Sodium/Dextrose 2 gm (/ Premix) 50 mls @ 100 mls/hr IV Q8H [facility] Stop: 10/17/17 08:29 Last Admin: 10/17/17 00:30 Dose: 100 mls/hr Ketorolac Tromethamine (Toradol) 15 mg IVPUSH Q6H PRN PRN Reason: Pain Last Admin: 10/17/17 05:48 Dose: 15 mg Lisinopril (Prinivil) 20 mg PO DAILY [facility] Magnesium Hydroxide (Milk Of Magnesia) 30 ml PO BID PRN PRN Reason: Constipation Morphine Sulfate (Morphine) 2 mg IVPUSH Q2H PRN PRN Reason: Breakthrough Pain Naloxone HCl (Narcan) 0.1 mg IVPUSH Q5M PRN PRN Reason: Oversedation Ondansetron HCl (Zofran) 4 mg IVPUSH Q6H PRN PRN Reason: Nausea/Vomiting Oxycodone/Acetaminophen (Percocet 325-5 Mg) 1 - 2 tab PO Q4H PRN PRN Reason: Pain Last Admin: 10/17/17 05:47 Dose: 2 tab Senna (Senna) 8.6 mg PO BID PRN PRN Reason: Constipation Simvastatin (Zocor) 20 mg PO BEDTIME [facility] Last Admin: 10/16/17 21:21 Dose: Not Given Triamcinolone Acetonide (Triamcinolone Acetonide 0.1% Crm) 0 gm TOP DAILY [facility] Discontinued Medications Bupivacaine HCl (Marcaine 0.25%) Confirm Administered Dose 30 ml .ROUTE .STK- MED ONE Stop: 10/16/17 06:59 Last Admin: 10/16/17 09:57 Dose: 30 ml Cefazolin Sodium (Ancef) Confirm Administered Dose 2 gm .ROUTE .STK-MED ONE Stop: 10/16/17 06:59 Last Admin: 10/16/17 09:51 Dose: 2 gm Cefazolin Sodium (Ancef) Confirm Administered Dose 2 gm .ROUTE .STK-MED ONE Stop: 10/16/17 07:43 Morphine Sulfate 8 mg/Epinephrine HCl 0.3 mg/Cefuroxime Sodium 750 mg/Ketorolac Tromethamine 30 mg/Sodium Chloride 27.9 ml 0 mg .XX ONETIME ONE Stop: 10/16/17 06:38 Last Admin: 10/16/17 09:58 Dose: 788.3 mg Epinephrine HCl (Adrenalin) Confirm Administered Dose 1 mg .ROUTE .STK-MED ONE Stop: 10/16/17 11:09 Fentanyl (Sublimaze) Confirm Administered Dose 100 mcg .ROUTE .STK-MED ONE Stop: 10/16/17 07:42 Fentanyl (Sublimaze) 50 mcg IVPUSH Q5M PRN PRN Reason: PAIN Stop: 10/16/17 10:51 Lactated Ringer's (Ringers, Lactated) 1,000 mls @ 125 mls/hr IV ASDIRECTED [facility] Stop: 10/10/17 23:00 Lactated Ringer's (Ringers, Lactated) 1,000 mls @ 125 mls/hr IV ASDIRECTED [facility] Stop: 10/16/17 23:00 Last Admin: 10/16/17 07:35 Dose: 125 mls/hr Lidocaine HCl (Xylocaine-Mpf 1%) Confirm Administered Dose 4 mls @ as directed .ROUTE .STK-MED ONE Stop: 10/16/17 07:43 Lactated Ringer's (Ringers, Lactated) Confirm Administered Dose 1,000 mls @ as directed .ROUTE .STK-MED ONE Stop: 10/16/17 09:04 Lactated Ringer's (Ringers, Lactated) Confirm Administered Dose 1,000 mls @ as directed .ROUTE .STK-MED ONE Stop: 10/16/17 10:22 Iodine (Iodine 2% Mild Tincture) Confirm Administered Dose 30 ml .ROUTE .STK- MED ONE Stop: 10/16/17 06:59 Last Admin: 10/16/17 09:48 Dose: 18 ml Ketorolac Tromethamine (Toradol) Confirm Administered Dose 30 mg .ROUTE .STK- MED ONE Stop: 10/16/17 10:28 Lidocaine/Sodium Bicarbonate (Buffered Lidocaine 1% In Ns 8.4%) 0.25 ml IV ONETIME PRN PRN Reason: Prior to IV Start Stop: 10/10/17 18:00 Lidocaine/Sodium Bicarbonate (Buffered Lidocaine 1% In Ns 8.4%) 0.25 ml IDERM ONETIME PRN PRN Reason: Prior to IV Start Stop: 10/16/17 18:00 Last Admin: 10/16/17 07:35 Dose: 0.25 ml Midazolam HCl (Versed 1 Mg/Ml) Confirm Administered Dose 2 mg .ROUTE .STK-MED ONE Stop: 10/16/17 07:43 Morphine Sulfate (Duramorph Pf) Confirm Administered Dose 1 mg .ROUTE .STK-MED ONE Stop: 10/16/17 07:37 Ondansetron HCl (Zofran) Confirm Administered Dose 4 mg .ROUTE .STK-MED ONE Stop: 10/16/17 07:43 Propofol (Diprivan 20 Ml) Confirm Administered Dose 200 mg .ROUTE .STK-MED ONE Stop: 10/16/17 07:42 Propofol (Diprivan 20 Ml) Confirm Administered Dose 200 mg .ROUTE .STK-MED ONE Stop: 10/16/17 09:11 Propofol (Diprivan 20 Ml) Confirm Administered Dose 200 mg .ROUTE .STK-MED ONE Stop: 10/16/17 09:42 Propofol (Diprivan 20 Ml) Confirm Administered Dose 200 mg .ROUTE .STK-MED ONE Stop: 10/16/17 10:13 Ropivacaine (Naropin 0.5%) Confirm Administered Dose 30 ml .ROUTE .STK-MED ONE Stop: 10/16/17 11:09 Scopolamine (Scopolamine) 1 each TOP ONETIME ONE Stop: 10/16/17 07:57 Last Admin: 10/16/17 08:07 Dose: 1 each Sodium Chloride (Saline Flush) 10 ml FLUSH ASDIRECTED PRN PRN Reason: Keep Vein Open Stop: 10/10/17 18:00 Sodium Chloride (Saline Flush) 10 ml FLUSH ASDIRECTED PRN PRN Reason: Keep Vein Open Stop: 10/16/17 18:00 Tranexamic Acid (Cyklokapron) Confirm Administered Dose 1,000 mg .ROUTE .STK- MED ONE Stop: 10/16/17 06:59 Last Admin: 10/16/17 10:00 Dose: 1,000 mg Vancomycin HCl (Vancomycin) Confirm Administered Dose 1 gm .ROUTE .ST-MED ONE Stop: 10/16/17 06:59 Last Admin: 10/16/17 10:01 Dose: 1 gm - Exam Quality Assessment: DVT Prophylaxis General: Alert, Oriented, Cooperative, No Acute Distress HEENT: Pupils Equal, EOMI, Mucous Membr. Moist/[place] Neck: Supple Lungs: Clear to Auscultation, Normal Respiratory Effort Cardiovascular: Regular Rate, Regular Rhythm GI/Abdominal Exam: Normal Bowel Sounds, Soft, Non-Tender (Male) Exam: Deferred Extremities: Other (teds, SCD's and ice to knee) Peripheral Pulses: 2+: Dorsalis Pedis (L), Dorsalis Pedis (R) Neurological: No New Focal Deficit Psy/Mental Status: Alert, Normal Affect, Normal Mood Consult PN Assessment/Plan POD#: 1 Procedures: Procedures APPLICATION LOWER LEG SPLINT (04/17/17) ASSAY OF LIPASE (08/19/16) ASSAY OF TROPONIN QUANT (08/19/16) COMPLETE CBC W/AUTO DIFF WBC (08/19/16) COMPREHEN METABOLIC PANEL (08/19/16) DXA BONE DENSITY AXIAL (10/04/17) ECHO EXAM OF ABDOMEN (08/19/16) ELECTROCARDIOGRAM TRACING (08/19/16) EMERGENCY DEPT VISIT (04/17/17) EMERGENCY DEPT VISIT (08/19/16) GLUCOSE BLOOD TEST (09/24/16) HEPATOBIL SYST IMAGE W/DRUG (08/22/16) HYDRATE IV INFUSION ADD-ON (08/19/16) [place]ARO CHOLECYSTECTOMY/GRAPH (09/24/16) ROUTINE VENIPUNCTURE (08/19/16) RPR UMBIL JANELL REDUC > 5 YR (09/24/16) THER/PROPH/DIAG INJ IV PUSH (08/19/16) TISSUE EXAM BY PATHOLOGIST (09/24/16) TX/PRO/DX INJ NEW DRUG ADDON (08/19/16) TX/PRO/DX INJ SAME DRUG TEACHING ARTIST (08/19/16) X-RAY BILE DUCTS/PANCREAS (09/24/16) X-RAY EXAM OF ANKLE (04/17/17) (1) Osteoarthritis SNOMED Code(s): 895202016 Code(s): M19.90 - UNSPECIFIED OSTEOARTHRITIS, UNSPECIFIED SITE Priority: High Current Visit: Yes Qualifiers: Osteoarthritis location: knee Osteoarthritis type: primary Laterality: left Qualified Code(s): M17.12 - Unilateral primary osteoarthritis, left knee (2) S/P total knee arthroplasty SNOMED Code(s): 2950193069397, 5783691928393 Code(s): Z96.659 - PRESENCE OF UNSPECIFIED ARTIFICIAL KNEE JOINT Priority: High Current Visit: Yes Qualifiers: Laterality: left Qualified Code(s): Z96.652 - Presence of left artificial knee joint Problem List Initiated/Reviewed/Updated: Yes Plan: I/P: S/P Lt TKA with Dr. Frias -Pain management and DVT prophylax per primary team -PT/OT -RT/IS -VSS on RA Hgb 13.0 Chronic conditions- stable HTN HLD CAD s/p AMI Type 2 DM Gout Biliary dyskinesia Recent partial achillies tear to left Other: GI prophylax CM for DC planning assistance Patient is ok for DC home today from Hospitalist standpoint- recommendations reviewed with Ortho team today. Patient is Full Code status
[2017-10-17 08:19] VITALS: BP 129/69
[2017-10-17] MEDS ORDERED: Lisinopril 20 MG Tab PO SCH (09:00)
[2017-10-17] MEDS ORDERED: Cholecalciferol (Vitamin D3) 1,000 Unit Tab PO SCH (09:00)
[2017-10-17] MEDS ORDERED: Allopurinol 300 MG Tab PO SCH (09:00)
[2017-10-17] MEDS ORDERED: Aspirin 325 MG Tab.EC PO SCH (09:00)
[2017-10-17] MEDS ORDERED: Triamcinolone Acetonide 0.1% Crm 15 GM Tube TOP SCH (09:00)
[2017-10-17] MEDS: Cyclobenzaprine 10 MG Tab PO PRN (09:34)
[2017-10-17] MEDS: Docusate Sodium 100 MG Cap PO SCH (09:34)
[2017-10-17] MEDS: Famotidine 20 MG Tab PO SCH (09:34)
--- NOTE | 2017-10-17 12:28 | PCM.SURGPN ---
- General Info Date of Service: 10/17/17 POD#: 1 Functional Status: Reports: Pain Controlled, Tolerating Diet, Ambulating, Urinating, Incentive Spirometry - Review of Systems Musculoskeletal: Reports: Other (The pt has met inpatient therapy goals.) - Patient Data Vitals - Most Recent: Last Vital Signs Temp 98.8 F 10/17/17 07:47 Pulse 65 10/17/17 07:47 Resp 20 10/17/17 07:47 BP 129/69 10/17/17 09:34 Pulse Ox 94 L 10/17/17 10:00 Weight - Most Recent: 218 lb 14.4 oz I&O - Last 24 Hours: Intake & Output 10/16/17 10/17/17 10/17/17 22:59 06:59 14:59 Intake Total 750 1900 0 Output Total 400 Balance 350 1900 0 Lab Results Last 24 Hrs: Laboratory Results - last 24 hr 10/17/17 10/17/17 Range/Units 06:15 06:15 WBC 9.29 H (4.23-9.07) K/mm3 RBC 4.00 L (4.63-6.08) M/mm3 Hgb 13.0 L (13.7-17.5) gm/L Hct 37.3 L (40.1-51.0) % MCV 93.3 H (79.0-92.2) fl MCH 32.5 H (25.7-32.2) pg MCHC 34.9 (32.2-35.5) g/dl RDW Std Deviation 43.3 (35.1-43.9) fL Plt Count 134 L (163-337) K/mm3 MPV 11.2 (9.4-12.3) fl Sodium 136 (136-145) mEq/L Potassium 4.0 (3.5-5.1) mEq/L Chloride 102 (98-107) mEq/L Carbon Dioxide 26 (21-32) mEq/L Anion Gap 12.0 (5-15) BUN 15 (7-18) mg/dL Creatinine 1.0 (0.7-1.3) mg/dL Est Cr Clr Drug Dosing 84.07 mL/min Estimated GFR (MDRD) > 60 (>60) mL/min BUN/Creatinine Ratio 15.0 (14-18) Glucose 128 H (80-115) mg/dL Calcium 8.2 L (8.5-10.1) mg/dL Total Bilirubin 1.6 H (0.2-1.0) mg/dL AST 32 (15-37) U/L ALT 55 (16-63) U/L Alkaline Phosphatase 56 (46-116) U/L Total Protein 6.1 L (6.4-8.2) g/dl Albumin 3.3 L (3.4-5.0) g/dl Globulin 2.8 gm/dL Albumin/Globulin Ratio 1.2 (1-2) Med Orders - Current: Current Medications Allopurinol (Zyloprim) 300 mg PO DAILY REPLACED BY [facility] Last Admin: 10/17/17 09:34 Dose: 300 mg Aspirin (Ecotrin) 325 mg PO BID REPLACED BY [facility] Last Admin: 10/17/17 09:35 Dose: 325 mg Bisacodyl (Dulcolax) 5 mg PO DAILY PRN PRN Reason: Constipation Cholecalciferol (Vitamin D3) 5,000 units PO DAILY REPLACED BY [facility] Last Admin: 10/17/17 09:35 Dose: 5,000 units Cyclobenzaprine HCl (Flexeril) 10 mg PO TID PRN PRN Reason: Spasms Last Admin: 10/17/17 09:34 Dose: 10 mg Diphenhydramine HCl (Benadryl) 25 mg IVPUSH Q4H PRN PRN Reason: Nausea Docusate Sodium (Colace) 100 mg PO BID REPLACED BY [facility] Last Admin: 10/17/17 09:34 Dose: 100 mg Famotidine (Pepcid) 20 mg PO Q12H REPLACED BY [facility] Last Admin: 10/17/17 09:34 Dose: 20 mg Flunisolide (Nasalide Nasal [place]) 0 ml NASBOTH DAILY PRN PRN Reason: allergy symptoms Ketorolac Tromethamine (Toradol) 15 mg IVPUSH Q6H PRN PRN Reason: Pain Last Admin: 10/17/17 05:48 Dose: 15 mg Lisinopril (Prinivil) 20 mg PO DAILY REPLACED BY [facility] Last Admin: 10/17/17 09:34 Dose: 20 mg Magnesium Hydroxide (Milk Of Magnesia) 30 ml PO BID PRN PRN Reason: Constipation Morphine Sulfate (Morphine) 2 mg IVPUSH Q2H PRN PRN Reason: Breakthrough Pain Naloxone HCl (Narcan) 0.1 mg IVPUSH Q5M PRN PRN Reason: Oversedation Ondansetron HCl (Zofran) 4 mg IVPUSH Q6H PRN PRN Reason: Nausea/Vomiting Oxycodone/Acetaminophen (Percocet 325-5 Mg) 1 - 2 tab PO Q4H PRN PRN Reason: Pain Last Admin: 10/17/17 09:35 Dose: 2 tab Senna (Senna) 8.6 mg PO BID PRN PRN Reason: Constipation Simvastatin (Zocor) 20 mg PO BEDTIME REPLACED BY [facility] Last Admin: 10/16/17 21:21 Dose: Not Given Triamcinolone Acetonide (Triamcinolone Acetonide 0.1% Crm) 0 gm TOP DAILY REPLACED BY [facility] Last Admin: 10/17/17 09:53 Dose: Not Given Discontinued Medications Bupivacaine HCl (Marcaine 0.25%) Confirm Administered Dose 30 ml .ROUTE .STK- MED ONE Stop: 10/16/17 06:59 Last Admin: 10/16/17 09:57 Dose: 30 ml Cefazolin Sodium (Ancef) Confirm Administered Dose 2 gm .ROUTE .STK-MED ONE Stop: 10/16/17 06:59 Last Admin: 10/16/17 09:51 Dose: 2 gm Cefazolin Sodium (Ancef) Confirm Administered Dose 2 gm .ROUTE .STK-MED ONE Stop: 10/16/17 07:43 Morphine Sulfate 8 mg/Epinephrine HCl 0.3 mg/Cefuroxime Sodium 750 mg/Ketorolac Tromethamine 30 mg/Sodium Chloride 27.9 ml 0 mg .XX ONETIME ONE Stop: 10/16/17 06:38 Last Admin: 10/16/17 09:58 Dose: 788.3 mg Epinephrine HCl (Adrenalin) Confirm Administered Dose 1 mg .ROUTE .STK-MED ONE Stop: 10/16/17 11:09 Fentanyl (Sublimaze) Confirm Administered Dose 100 mcg .ROUTE .STK-MED ONE Stop: 10/16/17 07:42 Fentanyl (Sublimaze) 50 mcg IVPUSH Q5M PRN PRN Reason: PAIN Stop: 10/16/17 10:51 Lactated Ringer's (Ringers, Lactated) 1,000 mls @ 125 mls/hr IV ASDIRECTED REPLACED BY [facility] Stop: 10/10/17 23:00 Lactated Ringer's (Ringers, Lactated) 1,000 mls @ 125 mls/hr IV ASDIRECTED REPLACED BY [facility] Stop: 10/16/17 23:00 Last Admin: 10/16/17 07:35 Dose: 125 mls/hr Cefazolin Sodium/Dextrose 2 gm (/ Premix) 50 mls @ 100 mls/hr IV Q8H REPLACED BY [facility] Stop: 10/17/17 08:29 Last Admin: 10/17/17 09:36 Dose: 100 mls/hr Lidocaine HCl (Xylocaine-Mpf 1%) Confirm Administered Dose 4 mls @ as directed .ROUTE .STK-MED ONE Stop: 10/16/17 07:43 Lactated Ringer's (Ringers, Lactated) Confirm Administered Dose 1,000 mls @ as directed .ROUTE .STK-MED ONE Stop: 10/16/17 09:04 Lactated Ringer's (Ringers, Lactated) Confirm Administered Dose 1,000 mls @ as directed .ROUTE .STK-MED ONE Stop: 10/16/17 10:22 Iodine (Iodine 2% Mild Tincture) Confirm Administered Dose 30 ml .ROUTE .STK- MED ONE Stop: 10/16/17 06:59 Last Admin: 10/16/17 09:48 Dose: 18 ml Ketorolac Tromethamine (Toradol) Confirm Administered Dose 30 mg .ROUTE .STK- MED ONE Stop: 10/16/17 10:28 Lidocaine/Sodium Bicarbonate (Buffered Lidocaine 1% In Ns 8.4%) 0.25 ml IV ONETIME PRN PRN Reason: Prior to IV Start Stop: 10/10/17 18:00 Lidocaine/Sodium Bicarbonate (Buffered Lidocaine 1% In Ns 8.4%) 0.25 ml IDERM ONETIME PRN PRN Reason: Prior to IV Start Stop: 10/16/17 18:00 Last Admin: 10/16/17 07:35 Dose: 0.25 ml Midazolam HCl (Versed 1 Mg/Ml) Confirm Administered Dose 2 mg .ROUTE .STK-MED ONE Stop: 10/16/17 07:43 Morphine Sulfate (Duramorph Pf) Confirm Administered Dose 1 mg .ROUTE .STK-MED ONE Stop: 10/16/17 07:37 Ondansetron HCl (Zofran) Confirm Administered Dose 4 mg .ROUTE .STK-MED ONE Stop: 10/16/17 07:43 Propofol (Diprivan 20 Ml) Confirm Administered Dose 200 mg .ROUTE .STK-MED ONE Stop: 10/16/17 07:42 Propofol (Diprivan 20 Ml) Confirm Administered Dose 200 mg .ROUTE .[facility]-MED ONE Stop: 10/16/17 09:11 Propofol (Diprivan 20 Ml) Confirm Administered Dose 200 mg .ROUTE .STK-MED ONE Stop: 10/16/17 09:42 Propofol (Diprivan 20 Ml) Confirm Administered Dose 200 mg .ROUTE .[facility]-MED ONE Stop: 10/16/17 10:13 Ropivacaine (Naropin 0.5%) Confirm Administered Dose 30 ml .ROUTE .K-MED ONE Stop: 10/16/17 11:09 Scopolamine (Scopolamine) 1 each TOP ONETIME ONE Stop: 10/16/17 07:57 Last Admin: 10/16/17 08:07 Dose: 1 each Sodium Chloride (Saline Flush) 10 ml FLUSH ASDIRECTED PRN PRN Reason: Keep Vein Open Stop: 10/10/17 18:00 Sodium Chloride (Saline Flush) 10 ml FLUSH ASDIRECTED PRN PRN Reason: Keep Vein Open Stop: 10/16/17 18:00 Tranexamic Acid (Cyklokapron) Confirm Administered Dose 1,000 mg .ROUTE .[facility]- MED ONE Stop: 10/16/17 06:59 Last Admin: 10/16/17 10:00 Dose: 1,000 mg Vancomycin HCl (Vancomycin) Confirm Administered Dose 1 gm .ROUTE .[facility]-MED ONE Stop: 10/16/17 06:59 Last Admin: 10/16/17 10:01 Dose: 1 gm - Exam Wound/Incisions: Dressing Dry and Intact General: Alert, Cooperative, No Acute Distress Lungs: Normal Respiratory Effort Extremities: Other (NVS intact for BLE. Keli's negative. Strong left quad contraction noted.) - Problem List Review Problem List Initiated/Reviewed/Updated: Yes - My Orders Last 24 Hours: Active Orders 24 hr Category Date Time Status Patient Status [ADT] Routine ADT 10/16/17 14:57 Active CPAP Adult [RT BiPAP/CPAP] [RC] ASDIRECTED Care 10/16/17 21:48 Active Cardiac Monitoring [RC] . DIRECTED Care 10/16/17 14:57 Active Ready for Discharge [RC] PER UNIT ROUTINE Care 10/17/17 10:23 Active Allopurinol [Zyloprim] Med 10/17/17 09:00 Active 300 mg PO DAILY Aspirin [Ecotrin] Med 10/17/17 09:00 Active 325 mg PO BID Cholecalciferol (Vitamin D3) [Vitamin D3] Med 10/17/17 09:00 Active 5,000 units PO DAILY Docusate Sodium [Colace] Med 10/16/17 21:00 Active 100 mg PO BID Famotidine [Pepcid] Med 10/16/17 21:00 Active 20 mg PO Q12H Lisinopril [Prinivil] Med 10/17/17 09:00 Active 20 mg PO DAILY Simvastatin [Zocor] Med 10/16/17 21:00 Active 20 mg PO BEDTIME Triamcinolone Acetonide [Triamcinolone Acetonide 0.1% Med 10/17/17 09:00 Active Crm] 0 gm TOP DAILY Medication Orders Allopurinol (Zyloprim) 300 mg PO DAILY REPLACED BY [facility] Last Admin: 10/17/17 09:34 Dose: 300 mg Aspirin (Ecotrin) 325 mg PO BID REPLACED BY [facility] Last Admin: 10/17/17 09:35 Dose: 325 mg Bisacodyl (Dulcolax) 5 mg PO DAILY PRN PRN Reason: Constipation Cholecalciferol (Vitamin D3) 5,000 units PO DAILY REPLACED BY [facility] Last Admin: 10/17/17 09:35 Dose: 5,000 units Cyclobenzaprine HCl (Flexeril) 10 mg PO TID PRN PRN Reason: Spasms Last Admin: 10/17/17 09:34 Dose: 10 mg Admin: 10/16/17 19:34 Dose: 10 mg Diphenhydramine HCl (Benadryl) 25 mg IVPUSH Q4H PRN PRN Reason: Nausea Docusate Sodium (Colace) 100 mg PO BID REPLACED BY [facility] Last Admin: 10/17/17 09:34 Dose: 100 mg Admin: 10/16/17 21:20 Dose: Not Given Admin: 10/16/17 19:33 Dose: 100 mg Famotidine (Pepcid) 20 mg PO Q12H REPLACED BY [facility] Last Admin: 10/17/17 09:34 Dose: 20 mg Admin: 10/16/17 21:21 Dose: Not Given Admin: 10/16/17 19:33 Dose: 20 mg Flunisolide (Nasalide Nasal [place]) 0 ml NASBOTH DAILY PRN PRN Reason: allergy symptoms Ketorolac Tromethamine (Toradol) 15 mg IVPUSH Q6H PRN PRN Reason: Pain Last Admin: 10/17/17 05:48 Dose: 15 mg Admin: 10/16/17 20:53 Dose: 15 mg Lisinopril (Prinivil) 20 mg PO DAILY REPLACED BY [facility] Last Admin: 10/17/17 09:34 Dose: 20 mg Magnesium Hydroxide (Milk Of Magnesia) 30 ml PO BID PRN PRN Reason: Constipation Morphine Sulfate (Morphine) 2 mg IVPUSH Q2H PRN PRN Reason: Breakthrough Pain Naloxone HCl (Narcan) 0.1 mg IVPUSH Q5M PRN PRN Reason: Oversedation Ondansetron HCl (Zofran) 4 mg IVPUSH Q6H PRN PRN Reason: Nausea/Vomiting Oxycodone/Acetaminophen (Percocet 325-5 Mg) 1 - 2 tab PO Q4H PRN PRN Reason: Pain Last Admin: 10/17/17 09:35 Dose: 2 tab Admin: 10/17/17 05:47 Dose: 2 tab Admin: 10/17/17 00:29 Dose: 2 tab Senna (Senna) 8.6 mg PO BID PRN PRN Reason: Constipation Simvastatin (Zocor) 20 mg PO BEDTIME REPLACED BY [facility] Last Admin: 10/16/17 21:21 Dose: Not Given Admin: 10/16/17 19:33 Dose: 20 mg Triamcinolone Acetonide (Triamcinolone Acetonide 0.1% Crm) 0 gm TOP DAILY REPLACED BY [facility] Last Admin: 10/17/17 09:53 Dose: Not Given - Assessment Assessment (Free Text/Narrative):: POD#1 - left TKA - Plan Plan (Free Text/Narrative):: 1. Hgb 13.0. 2. Discharge to home today. 3. Outpatient P.T. 4. 325mg ASA BID, frequent mobility and TEDs use. The pt's case was discussed with Dr. Frias.
--- NOTE | 2017-10-22 14:04 | PCM.OPNOTE ---
- General Post-Op/Procedure Note Date of Surgery/Procedure: 10/16/17 Operative Procedure(s): left total knee arthroplasty Pre Op Diagnosis: left knee osteoarthrosis Post-Op Diagnosis: Same Anesthesia Technique: Local, MAC, Spinal Primary Surgeon: Maximino Frias Anesthesia Provider: John Garcia Gas Singer: Veronica Romero Gas Singer: Kajal Puente EBAndree in mLs: 450 Complications: None Condition: Good
--- NOTE | 2017-10-22 15:29 | OR ---
DATE OF OPERATION: 10/16/2017 SURGEON: Maximino Frias MD OPERATION PERFORMED: Left total knee arthroplasty. PREOPERATIVE DIAGNOSIS: Left total knee osteoarthrosis. POSTOPERATIVE DIAGNOSIS: Left total knee osteoarthrosis. ANESTHESIA: Local MAC with spinal. ANESTHESIA PROVIDER: John Garcia CRNA. ASSISTANTS: Veronica Romero PA-C, and Kajal Puente LPN. ESTIMATED BLOOD LOSS: 450 mL COMPLICATIONS: None. CONDITION: Stable. IMPLANTS: 1. Mandie size 7 press-fit femur. 2. Mandie size 6 press-fit tibial base plate. 3. Mandie size 6 CS 9 mm polyethylene. 4. Mandie size 32 x 10 mm press-fit asymmetric patella. DESCRIPTION OF PROCEDURE: The patient was identified in the preop holding area. Proper site was marked and identified by the surgeon. The patient was taken back to the operating theater. After adequate anesthesia, the patient's left lower extremity had a nonsterile tourniquet applied and it was then sterilely prepped and draped in the usual sterile fashion. OR timeout was performed. The patient received 2 g IV Ancef. At this time, left lower extremity was exsanguinated. Tourniquet was insufflated to 300 mmHg. Standard medial parapatellar incision was made. Medial parapatellar arthrotomy was created. Deep fibers of the MCL were raised and anterior fat pad was resected. At this time, attention was turned to the patella. Patella measured 25, it was resected to a 15 for 32 x 10 patella. Drill holes were then drilled and found to be in adequate position. The drill was then drilled in the distal femur and the intramedullary distal femoral cutting guide was then placed. 8 mm was resected off the distal femur and was found to be an adequate resection. Sizing guide was placed. It was found to be a size 7 femur that was shown on the implant record at the beginning of this dictation. The drill holes were drilled for the epicondylar axis using [place] line and epicondyles as reference. At this time, the 4-in-1 cutting block was placed. An anterior posterior and anterior and posterior chamfer cuts were then completed. Attention was turned to the tibia. The posterior medial lateral retractors were placed. The extramedullary tibial guide was placed. It was placed in the old footprint of the ACL. It was aligned with the center of the ankle and 0 degrees of slope, 9 mm was then resected off the unaffected lateral side. There was found to be an acceptable reduction. At this time, posterior osteophytes were removed along with medial and lateral meniscus. A trial implant was placed with a correct sized tibia that was mentioned at the beginning of the dictation. A Mandie trial size 6 CS 9 mm polyethylene was then placed. The patient's knee was brought through range of motion. The patella was tracking centrally and was stable to varus and valgus stress. Alignment was found to be roughly at 0 degrees. The tibia was stamped and drilled in proper rotation. The universal tibial base plate was impacted into place. Next, the Mandie size 7 press-fit femur was impacted into place and the [place] size 6 CS 9 mm polyethylene was placed. The patient's knee was brought into full extension. The patella was then press-fit into place at this time. Tourniquet was deflated. One liter dilute Betadine solution was irrigated through the knee along with 3 L of pulse lavage irrigation with Ancef. Periarticular injection was then completed. The patient's knee was brought through a range of motion. Knee was found to be stable to varus valgus stress, the patella was tracking centrally with full range of motion. At this time, a #2 barbed suture was used for closure of the medial parapatellar arthrotomy. Topical tranexamic acid was placed. 2-0 Vicryl was used subcutaneously, a running 3-0 Monocryl was used subcuticularly. The patient tolerated the procedure well and was sent to the PACU in stable condition. GOLDEN /[id number] [place]
== END 2017-10-17 12:05 | disposition home or self-care (01) ==
LOC: JD.SDS 07:02 → JD.MS 07:02 → JD.SDS 14:57 → UNDOADMOB 14:57 → JD.SDS 10-17 12:05 → UNDODISOB 10-17 12:05
PROVIDERS: ATTEND Orthopaedic Surgery
DX: M17.12 Unilateral primary osteoarthritis, left knee (principal); E11.9 Type 2 diabetes mellitus without complications; I10 Essential (primary) hypertension; E78.5 Hyperlipidemia, unspecified; M1A.9XX0 Chronic gout, unspecified, without tophus (tophi); G47.33 Obstructive sleep apnea (adult) (pediatric); K21.9 Gastro-esophageal reflux disease without esophagitis; I25.10 Atherosclerotic heart disease of native coronary artery without angina pectoris; I25.2 Old myocardial infarction; R79.89 Other specified abnormal findings of blood chemistry; K57.90 Diverticulosis of intestine, part unspecified, without perforation or abscess without bleeding; M54.9 Dorsalgia, unspecified; G89.29 Other chronic pain; K82.8 Other specified diseases of gallbladder; L40.9 Psoriasis, unspecified; Z79.82 Long term (current) use of aspirin; Z79.899 Other long term (current) drug therapy; Z98.890 Other specified postprocedural states; Z79.51 Long term (current) use of inhaled steroids; Z88.5 Allergy status to narcotic agent; Z88.6 Allergy status to analgesic agent
CPT/HCPCS: 27447; 36415; 64447; 73560; 80053; 82962; 85027; 87641; 94762; 97110; 97116; 97161; 97165; 97530; 97535; A9270; C1776; J0171; J0690; J0697; J1885; J2250; J2270; J2274; J2405; J2795; J3010; J3370; J3490; J7120; J2704

== ENCOUNTER 2020-07-19 14:48 | Observation (INO) | payer MEDICARE, BC ==
[2020-07-19] MEDS ORDERED: Ondansetron 4 MG/2 ML SDV ONE ×2 (14:52)
[2020-07-19] MEDS ORDERED: Metoclopramide 10 MG/2 ML SDV ONE (14:59)
[2020-07-19] MEDS ORDERED: Metoclopramide 10 MG/2 ML SDV IVPUSH ONE (15:02)
[2020-07-19] MEDS ORDERED: Sodium Chloride 0.9% 10 ML Syringe FLUSH PRN (15:06)
[2020-07-19] MEDS ORDERED: Iopamidol 612 MG/ML 100 ML Bottle IVPUSH ONE (15:10)
[2020-07-19] MEDS ORDERED: Sodium Chloride 0.9% 10 ML Syringe FLUSH ONE (15:10)
[2020-07-19] MEDS ORDERED: Iopamidol 612 MG/ML 50 ML SDV IVPUSH ONE (15:10)
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
[2020-07-19] MEDS ORDERED: Sodium Chloride 0.9% 100 ML IV SCH (15:15)
[2020-07-19] MEDS ORDERED: Sodium Chloride 0.9% 1,000 ML IV SCH (15:15)
[2020-07-19] MEDS ORDERED: HYDROmorphone 0.5 MG/0.5 ML Syringe IVPUSH ONE (15:49)
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
[2020-07-19] MEDS ORDERED: HYDROmorphone 0.5 MG/0.5 ML Syringe IVPUSH PRN (18:28)
[2020-07-19] MEDS: Lactated Ringers 1,000 ML IV SCH (18:40)
[2020-07-19] MEDS ORDERED: Meclizine 12.5 MG Tab PO ONE (18:56)
[2020-07-19] MEDS: Acetaminophen 325 MG Tab PO SCH (20:07)
[2020-07-19] MEDS: oxyCODONE 5 MG Tab PO PRN (20:09)
[2020-07-19] MEDS ORDERED: Docusate Sodium 100 MG Cap PO PRN (22:07)
[2020-07-19] MEDS ORDERED: ATORVASTATIN 20 MG PO SCH (22:30)
[2020-07-19] MEDS ORDERED: LISINOPRIL 20 MG PO SCH (22:30)
[2020-07-19] MEDS ORDERED: Allopurinol 100 MG Tab**OWN MED PO SCH (23:10)
[2020-07-20] MEDS ORDERED: FLU Vacc QV2020-21(65YR UP)/PF 240 MCG/0.7 ML Syringe IM ONE (00:30)
[2020-07-20] MEDS: oxyCODONE 5 MG Tab PO PRN ×3 (03:03→14:54)
[2020-07-20] MEDS: Acetaminophen 325 MG Tab PO SCH ×2 (03:04→11:28)
[2020-07-20] MEDS: Lactated Ringers 1,000 ML IV SCH (07:45)
[2020-07-20] MEDS ORDERED: Allopurinol 300 MG Tab PO SCH (09:00)
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
[2020-07-20] MEDS ORDERED: Magnesium Citrate Solution 296 ML Bottle PO ONE (12:25)
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
[2020-07-20 18:28] VITALS: BP 135/75; PULSE 62
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
== END 2020-07-20 15:35 | disposition home or self-care (01) ==
LOC: JD.ED 14:48 → JD.MS 18:29
PROVIDERS: ADMIT Surgery; ATTEND Surgery
DX: S22.43XA Multiple fractures of ribs, bilateral, initial encounter for closed fracture (principal); E11.9 Type 2 diabetes mellitus without complications; E78.00 Pure hypercholesterolemia, unspecified; I25.10 Atherosclerotic heart disease of native coronary artery without angina pectoris; I10 Essential (primary) hypertension; I25.2 Old myocardial infarction; Z79.899 Other long term (current) drug therapy; Z79.84 Long term (current) use of oral hypoglycemic drugs; Z88.8 Allergy status to other drugs, medicaments and biological substances; Z88.5 Allergy status to narcotic agent; Z20.828 Contact with and (suspected) exposure to other viral communicable diseases
CPT/HCPCS: 36415; 70450; 71045; 71046; 71260; 72125; 72128; 74177; 80053; 84484; 85025; 86850; 86900; 86901; 90662; 93005; A9270; G0008; J1170; J2765; J3360; J7120; Q9967; U0002; 93010; 99284

== ENCOUNTER 2022-11-12 08:44 | Emergency (ER) | payer MEDICARE, BC ==
[2022-11-12] MEDS ORDERED: Sodium Chloride 0.9% 10 ML Syringe FLUSH PRN (09:05)
[2022-11-12] MEDS ORDERED: Sodium Chloride 0.9% 1,000 ML IV SCH (09:15)
[2022-11-12 10:19] LABS: CORONAVIRUS COVID-19 NAA NEGATIVE (NEGATIVE)
[2022-11-12] MEDS ORDERED: cefTRIAXone 2 GM in Sodium Chloride 0.9% 100 ML IV ONE (11:46)
[2022-11-12 13:25] VITALS: BP 124/78; PULSE 78
== END 2022-11-12 13:24 | disposition home or self-care (01) ==
LOC: JD.ED 08:44
DX: N39.0 Urinary tract infection, site not specified (principal); K59.09 Other constipation; I25.10 Atherosclerotic heart disease of native coronary artery without angina pectoris; I10 Essential (primary) hypertension; E78.00 Pure hypercholesterolemia, unspecified; E11.9 Type 2 diabetes mellitus without complications; Z79.84 Long term (current) use of oral hypoglycemic drugs; Z79.899 Other long term (current) drug therapy; Z88.6 Allergy status to analgesic agent; Z20.822 Contact with and (suspected) exposure to COVID-19
CPT/HCPCS: 0241U; 36415; 71045; 74018; 80053; 81001; 82009; 82800; 83605; 83930; 85025; 86140; 87040; 87086; 87154; 96361; 96365; 99283; J0696; J3490; J7030; 87077; 87088; 87186